=== PATIENT | male | born 1960 | race Caucasian/White ===

== ENCOUNTER 2022-02-05 14:49 | Emergency (ER) | payer OTHER ==
[2022-02-05 16:13] LABS: HEMOGLOBIN 14.3 gm/dl (14.0-17.5); RED BLOOD COUNT 4.64 M/UL (4.20-5.50); WHITE BLOOD COUNT 6.5 K/UL (4.5-11.0)
[2022-02-05 16:34] LABS: BUN/CREATININE RATIO 12 (0-10)
[2022-02-05] MEDS ORDERED: HYDROCODON-ACE1 EAC4 PO (19:01)
== END 2022-02-05 19:30 | disposition home or self-care (01) ==
LOC: ER1 14:49
PROVIDERS: Emergency Medicine
DX: M54.42 Lumbago with sciatica, left side (principal); I71.9 Aortic aneurysm of unspecified site, without rupture; F17.200 Nicotine dependence, unspecified, uncomplicated; I10 Essential (primary) hypertension
CPT/HCPCS: 72132; 73502; 80053; 85025; 85652; 86140; 99284; Q9967